=== PATIENT | male | born 1975 | race African-American/Black ===

== ENCOUNTER 2021-09-21 11:17 | Outpatient (CLI) | payer OTHER, SELFPAY ==
--- NOTE | 2021-09-21 13:11 | WPDPFTINT ---
PFT Procedure Performed PFT Procedure Performed Spirometry with Pre/Post Bronchodilator Plethysmography (Lung Vol) Diffusing Cap (DLCO) Flow Vol Loop PFT Interpretation DOS: 09/21/2021 REQUESTING: Dr Watson REASON FOR TESTING: Asthma PULMONARY FUNCTION TESTS Results are reliable and reproducible. Spirometry: Pre bronchodilator FEV1 is 77% predicted, 2.71 L, mildly decreased. Pre-bronchodilator FVC is 76%, 3.33 L mildly decreased. The FEV1/ FVC ratio is 99%, normal. [id number]% is 85% predicted, normal. After bronchodilator, there is a 1% decrease in the FVC, essentially the same value, 75%. The FEV1 increases by 1%, 78% predicted, 2.73 L. This is not significant. The FEV1/ FVC ratio remains normal. [id number]% increases by 11%, 240 mL. Lung volumes: Total lung capacity is 69%, 4.38 L, mildly decreased. Residual volume 52% predicted, 1.05 L, decreased. RV/TLC is 73% predicted, 24%, no air trapping. FRC is 63%, 2.29 L, decreased. ERV 1.07 L. Airway resistance is normal, 110%. Diffusion: DLCO is 97% predicted, normal, 23 mL/min/mmHg. DLCO/VA 117% predicted, normal. Flow volume loop: Normal. IMPRESSION: Mild restriction without apparent obstruction; normal diffusion. There is no significant change with bronchodilator administration. Restriction can mask obstruction. Lack of response to bronchodilator should not preclude use if clinically indicated. Mary Brandt MD
== END 2021-09-21 11:18 | disposition home or self-care (01) ==
PROVIDERS: PCP Family Medicine; Visit Provider Registered Nurse
DX: J45.909 Unspecified asthma, uncomplicated (principal)
CPT/HCPCS: 94060; 94726; 94729